=== PATIENT | male | born 1980 | race Caucasian/White ===

== ENCOUNTER 2019-09-15 10:19 | Emergency (ER) | payer OTHER ==
[~2019-09-15] VITALS: Ht 175.3 cm; Wt 81.6 kg
--- NOTE | 2019-09-15 10:19 | NUR ---
Patient to bed and gown. Side rails up.
[2019-09-15 10:43] VITALS: BP_SYST 117
--- NOTE | 2019-09-15 10:58 | NUR ---
Patient brought in self with c/o foreign (metal) object in right eye. Notable redness in right eye but patient does not complain of pain, but reports uncomfortable feeling in area. Patient does not complain of blurry vision, dizziness, or double vision. Patient reported to have gone to urgent care on 09/14/2019 and was directed to go to ER. Patient was prescribed erithromycin eye ointment. Patient in no signs of distress.
--- NOTE | 2019-09-15 11:25 | NUR ---
ER Dr. Goznalez at bedside examining patient.
[2019-09-15 11:53] VITALS: BP_SYST 117
--- NOTE | 2019-09-15 11:53 | NUR ---
Patient given written and verbal discharge instructions and verbalizes understanding. ER MD discussed with patient the results and treatment provided. Patient in stable condition. ID arm band removed. Patient educated on pain management and to follow up with PMD. Pain Scale 0/10. Opportunity for questions provided and answered. Medication side effect fact sheet provided.
== END 2019-09-15 11:53 | disposition home or self-care (01) ==
LOC: SED 10:19
DX: T15.01XA Foreign body in cornea, right eye, initial encounter (principal); X58.XXXA Exposure to other specified factors, initial encounter; Y93.89 Activity, other specified; Y92.89 Other specified places as the place of occurrence of the external cause; Y99.8 Other external cause status
CPT/HCPCS: 99283; 99284